=== PATIENT | male | born 1970 | race American Indian/Alaskan Native ===

== ENCOUNTER 2018-10-03 12:35 | Emergency (ER) | payer MEDICAID ==
[2018-10-03 12:49] VITALS: BP 161/92
--- NOTE | 2018-10-03 12:52 | Emergency Department Report ---
Blank Doc - Documentation Documentation: 48 y o male pmh of DM, HTN, tobacco user presents with Right leg swelling, res and pain x 2 weeks sob, pain labs ordered , doppler ordered recharger notified, in acwr waiting Room
[2018-10-03 13:26] LABS: Basophils % (Auto) 0.3 % (0.0-1.8); Eosinophils # (Auto) 0.1 K/mm3 (0.0-0.4); Eosinophils % (Auto) 1.1 % (0.0-4.3); Hematocrit 41.2 % (35.5-45.6); Hemoglobin 13.6 gm/dl (11.8-15.2); Lymphocytes # (Auto) 4.5 K/mm3 (1.2-5.4); Lymphocytes % (Auto) 36.9 % (13.4-35.0); Mean Corpuscular HGB Conc 33 % (32-34); Mean Corpuscular Volume 89 fl (84-94); Monocytes # (Auto) 0.7 K/mm3 (0.0-0.8); Monocytes % (Auto) 5.7 % (0.0-7.3); Platelet Count 225 K/mm3 (140-440); Red Blood Count 4.63 M/mm3 (3.65-5.03); Red Cell Distribution Width 15.1 % (13.2-15.2)
--- NOTE | 2018-10-03 13:31 | Emergency Department Report ---
ED General Adult HPI - General Chief complaint: Extremity Injury, Lower Stated complaint: BLOOD CLOT IN LEG Time Seen by Provider: 10/03/18 12:47 Source: patient Mode of arrival: Wheelchair Limitations: No Limitations - History of Present Illness Initial comments: Patient is a 48-year-old male presents to [facility] with complaints of right lower extremity swelling and pain and discoloration. Patient states his symptoms started about 4 days ago. Patient states he went to see his primary care and primary care sent him from work evaluation and rule out DVT patient states the pain is worse with movement and palpation and better with rest and elevation. Patient's states that the pain has been worsening. Patient states the pain is nonradiating. Patient describes the pain as a pressure. Patient states the pain is intermittent. pt denies chest pain shortness of breath. -: Sudden Location: lower extremity Radiation: non-radiation Severity scale (0 -10): 10 Quality: stabbing Consistency: constant Improves with: rest Worsens with: movement Associated Symptoms: denies other symptoms. denies: confusion, chest pain, cough, diaphoresis, fever/chills, headaches, loss of appetite, malaise, nausea/vomiting, rash, seizure, shortness of breath, syncope, weakness - Related Data Previous Rx's Medication Instructions Recorded Last Taken Type guaiFENesin/CODEINE [Robitussin AC] 5 ml PO Q6H PRN #120 ml 06/25/18 Unknown Rx predniSONE [Deltasone] 20 mg PO QDAY #5 tab 06/25/18 Unknown Rx Doxycycline Hyclate [Doxycycline 100 mg PO Q12HR 10 Days #20 tab 10/03/18 Unknown Rx Hyclate TAB] HYDROcodone/ACETAMINOPHEN [[place] 1 each PO Q4HR PRN #12 tablet 10/03/18 Unknown Rx 5-325 Tablet] Allergies Allergy/AdvReac Type Severity Reaction Status Date / Time shellfish derived Allergy Unknown Verified 06/25/18 18:21 ED Review of Systems ROS: Stated complaint: BLOOD CLOT IN LEG Other details as noted in HPI Constitutional: denies: chills, fever Eyes: denies: eye pain, eye discharge, vision change ENT: denies: ear pain, throat pain Respiratory: denies: cough, shortness of breath, wheezing Cardiovascular: denies: chest pain, palpitations Endocrine: no symptoms reported Gastrointestinal: denies: abdominal pain, nausea, diarrhea Genitourinary: denies: urgency, dysuria Musculoskeletal: denies: back pain, joint swelling, arthralgia Skin: denies: rash, lesions Neurological: denies: headache, weakness, paresthesias Psychiatric: denies: anxiety, depression Hematological/Lymphatic: denies: easy bleeding, easy bruising ED Past Medical Hx - Past Medical History Previous Medical History?: Yes Hx Hypertension: Yes Hx Diabetes: Yes Hx COPD: Yes Additional medical history: elevated cholesterol, enlarged prostate, 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, using a walker - Surgical History Past Surgical History?: Yes Additional Surgical History: [id number] - Family History Family history: no significant - Social History Smoking Status: Current Every Day Smoker Substance Use Type: None - Medications Home Medications: Home Medications Medication Instructions Recorded Confirmed Last Taken Type guaiFENesin/CODEINE [Robitussin AC] 5 ml PO Q6H PRN #120 ml 06/25/18 Unknown Rx predniSONE [Deltasone] 20 mg PO QDAY #5 tab 06/25/18 Unknown Rx Doxycycline Hyclate [Doxycycline 100 mg PO Q12HR 10 Days #20 tab 10/03/18 Unknown Rx Hyclate TAB] HYDROcodone/ACETAMINOPHEN [[place] 1 each PO Q4HR PRN #12 tablet 10/03/18 Unknown Rx 5-325 Tablet] ED Physical Exam - General Limitations: No Limitations General appearance: alert, in no apparent distress - Head Head exam: Present: atraumatic, normocephalic - Eye Eye exam: Present: normal appearance - ENT ENT exam: Present: mucous membranes moist - Neck Neck exam: Present: normal inspection - Respiratory Respiratory exam: Present: normal lung sounds bilaterally. Absent: respiratory distress - Cardiovascular Cardiovascular Exam: Present: regular rate, normal rhythm. Absent: systolic murmur, diastolic murmur, rubs, gallop - GI/Abdominal GI/Abdominal exam: Present: soft, normal bowel sounds - Rectal Rectal exam: Present: deferred - Extremities Exam Extremities exam: Present: full ROM, tenderness (tenderness to right lower extremity. Right lower extremity significantly swollen. Redness noted), normal capillary refill, pedal edema, calf tenderness. Absent: joint swelling - Back Exam Back exam: Present: normal inspection - Neurological Exam Neurological exam: Present: alert, oriented X3 - Psychiatric Psychiatric exam: Present: normal affect, normal mood - Skin Skin exam: Present: warm, dry, intact, normal color. Absent: rash ED Course Vital Signs 10/03/18 12:47 Temperature 98.5 F Pulse Rate 95 H Respiratory 18 Rate Blood Pressure 161/92 O2 Sat by Pulse 96 Oximetry - Reevaluation(s) Reevaluation #1: Discussed all results with patient. Patient is stable for discharge. Patient's DVT screen was negative. Ultrasound negative. Patient voiced understanding of all results. Patient given discharge instructions. Patient given return to ER strokes. Patient voiced understanding of all instructions. 10/03/18 15:40 ED Medical Decision Making - Lab Data Result diagrams: 10/03/18 12:57 10/03/18 12:57 - Radiology Data Radiology results: report reviewed FINAL REPORT EXAM: VL VENOUS DUPLEX LE RT HISTORY: swelling, pain TECHNIQUE: Ultrasound examination of the right lower extremity venous system Ultrasound examination of the left lower extremity venous system PRIORS: None. FINDINGS: Right leg: Normal compressibility, vascular patency, and augmentation are present diffusely throughout the visualized portion of the deep veins of the right leg. No abnormal intraluminal echoes are visualized to suggest thrombus. Nonspecific prominence of right inguinal lymph nodes. Left leg: Normal compressibility, vascular patency, and augmentation are present diffusely throughout the visualized portion of the deep veins of the left leg. No abnormal intraluminal echoes are visualized to suggest thrombus. IMPRESSION: No sonographic evidence of DVT in the right leg No sonographic evidence of DVT in the left leg - Medical Decision Making Patient is a 48-year-old male Emergency room with left lower extremity pain and discoloration. Patient found to have cellulitis of the left lower externa. Ultrasound of the lower extremity was negative. Patient's labs unremarkable except for elevated d-dimer and slightly elevated RBC. All findings consistent with cellulitis. Patient was given oral antibiotics as well as pain medications. Patient given discharge instructions. Patient be discharged home. - Differential Diagnosis DVT. Cellulitis. leg pain Critical care attestation.: If time is entered above; I have spent that time in minutes in the direct care of this critically ill patient, excluding procedure time. ED Disposition Clinical Impression: Right leg pain, Swelling of right lower extremity Cellulitis Qualifiers: Site of cellulitis: extremity Site of cellulitis of extremity: lower extremity Laterality: right Qualified Code(s): L03.115 - Cellulitis of right lower limb Disposition: DC-01 TO HOME OR SELFCARE Is pt being admited?: No Does the pt Need Aspirin: No Condition: Stable Instructions: Cellulitis (ED) Additional Instructions: Patient to follow up with primary care in 2-3 days. Patient to return to ER if condition worsens. Patient take meds as directed. Patient to increase water. Patient take Tylenol or ibuprofen when necessary for pain. Patient to elevate extremity. Patient to rest. Patient to R.I.C.E... Prescriptions: Doxycycline Hyclate [Doxycycline Hyclate TAB] 100 mg PO Q12HR 10 Days #20 tab HYDROcodone/ACETAMINOPHEN [[place] 5-325 Tablet] 1 each PO Q4HR PRN #12 tablet PRN Reason: Pain , Severe (7-10) Referrals: SIGRID WRAY MD [Primary Care Provider] - 2-3 Days Time of Disposition: 15:32
[2018-10-03 13:38] LABS: INR 0.89 (0.87-1.13)
[2018-10-03 13:39] LABS: Partial Thromboplastin Time 21.7 Sec. (24.2-36.6)
[2018-10-03 13:40] LABS: Alanine Aminotransferase 29 units/L (7-56); BUN/Creatinine Ratio 13; Blood Urea Nitrogen 12 mg/dL (9-20); Calcium 9.3 mg/dL (8.4-10.2); Hemolysis Index 10
--- NOTE | 2018-10-03 15:13 | Vascular Lab Report ---
FINAL REPORT EXAM: VL VENOUS DUPLEX LE RT HISTORY: swelling, pain TECHNIQUE: Ultrasound examination of the right lower extremity venous system Ultrasound examination of the left lower extremity venous system PRIORS: None. FINDINGS: Right leg: Normal compressibility, vascular patency, and augmentation are present diffusely throughout the visua lized portion of the deep veins of the right leg. No abnormal intraluminal echoes are visualized to suggest thrombus. Nonspecific prominence of right inguinal lymph nodes. Left leg: Normal compressibility, vascular patency, and augmentation are present diffusely throughout the visua lized portion of the deep veins of the left leg. No abnormal intraluminal echoes are visualized to s uggest thrombus. IMPRESSION: No sonographic evidence of DVT in the right leg No sonographic evidence of DVT in the left leg
== END 2018-10-03 15:45 | disposition home or self-care (01) ==
LOC: ED 12:35
DX: L03.115 Cellulitis of right lower limb (principal); I10 Essential (primary) hypertension; E11.9 Type 2 diabetes mellitus without complications; J44.9 Chronic obstructive pulmonary disease, unspecified; E78.00 Pure hypercholesterolemia, unspecified; F17.200 Nicotine dependence, unspecified, uncomplicated; Z91.013 Allergy to seafood
CPT/HCPCS: 36415; 80053; 85025; 85379; 85610; 85730

== ENCOUNTER 2019-08-14 07:25 | Outpatient (CLI) | payer MEDICAID ==
--- NOTE | 2019-08-14 08:59 | Ultrasound Report ---
ULTRASOUND ABDOMEN, COMPLETE INDICATION: R16.0 HEPATOMEGALY NOT ELSEWHERE CLASSIFIED/LARGE LIVER. COMPARISON: None available. FINDINGS: Pancreas: Normal. Abdominal Aorta: Normal. IVC: Normal. Liver: 23.4 cm. Increased echogenicity. Gallbladder: Normal. Bile ducts: Normal. Common Bile Duct measures 5 mm. Right Kidney: Normal. Left Kidney: Normal. Spleen: Normal. Free fluid: None. Additional Findings: None. IMPRESSION: Large fatty liver. Signer Name: Angel Higgins MD Signed: 08/14/2019 8:55 AM Workstation Name: [id number]
== END 2019-08-14 07:26 | disposition home or self-care (01) ==
LOC: US 07:25
PROVIDERS: ATTEND Specialist
DX: K76.0 Fatty (change of) liver, not elsewhere classified (principal)
CPT/HCPCS: 76700